=== PATIENT | female | born 1940 | race Caucasian/White ===

== ENCOUNTER → 2017-03-02 05:00 | Outpatient (REF) | payer SELFPAY | LOC: OLS.ACW100 05:00 | PROVIDERS: Visit Provider Family Medicine | DX: E11.21 Type 2 diabetes mellitus with diabetic nephropathy (principal); J21.0 Acute bronchiolitis due to respiratory syncytial virus; N18.6 End stage renal disease; M62.81 Muscle weakness (generalized); Z99.2 Dependence on renal dialysis ==